=== PATIENT | male | born 1930 | race Caucasian/White ===

== ENCOUNTER → 2016-05-30 | Outpatient (CLI) | payer MEDICARE, BC ==
[2016-05-30 11:30] LABS: CH 27.4; CHCM 32.2; HCT 44.4 % (39.0-53.0); HDW 2.83; HGB 14.3 gm/dL (13.0-17.5); MCH 27.4 pg (25.0-35.0); MCHC 32.1 g/dL (31.0-37.0); MCV 85.2 fL (80.0-100.0); Mean Platelet Volume 6.9; RBC 5.21 m/uL (4.30-5.90); RDW 14.4 % (11.5-15.5); WBC 6.8 k/uL (3.8-10.6)
[2016-05-30 11:52] LABS: INR 1.7 (<1.1); Partial Thromboplastin Time 28.8 sec (22.0-30.0); Prothrombin Time 16.3 sec (9.0-12.0)
[2016-05-30 12:13] LABS: Anion Gap 10 mmol/L; Blood Urea Nitrogen 15 mg/dL (9-20); Carbon Dioxide 26 mmol/L (22-30); Chloride 107 mmol/L (98-107); Non-African American GFR(MDRD) >60 (>60 ml/min/1.73 sqM); Potassium 4.1 mmol/L (3.5-5.1); Sodium 143 mmol/L (137-145)
== END | disposition home or self-care (01) ==
LOC: LABPAT 10:37
PROVIDERS: ATTEND Internal Medicine Interventional Cardiology
DX: Z01.812 Encounter for preprocedural laboratory examination (principal); I49.5 Sick sinus syndrome; I48.91 Unspecified atrial fibrillation; Z51.81 Encounter for therapeutic drug level monitoring; Z79.01 Long term (current) use of anticoagulants
CPT/HCPCS: 80051; 82565; 84520; 85027; 85610; 85730

== ENCOUNTER → 2017-01-16 | Outpatient (CLI) | payer MEDICARE, BC ==
[2017-01-16 12:35] LABS: INR 3.5 (<1.2); Prothrombin Time 33.8 sec (9.0-12.0)
== END | disposition home or self-care (01) ==
LOC: LABWHC1 12:06
PROVIDERS: ATTEND Internal Medicine Interventional Cardiology
DX: I48.1 Persistent atrial fibrillation (principal)
CPT/HCPCS: 36415; 85610

== ENCOUNTER 2017-03-18 19:48 | Inpatient (IN) | payer MEDICARE, BC ==
--- NOTE | 2017-03-18 20:16 | ED ---
Lower Extremity Injury HPI - General Chief Complaint: Extremity Injury, Lower Stated Complaint: Fall Time Seen by Provider: 03/18/17 19:48 Source: patient, family, EMS, RN notes reviewed Mode of arrival: EMS Limitations: altered mental status - History of Present Illness Initial Comments: This is a 86-year-old male with a history dementia who is on blood thinners who apparently fell about a week ago while cutting grass he did twist his right knee. He finished cutting the lawn. He has had some swelling to the knee but today developed a lot of pain and increased swelling but no other findings. No abnormal behavior no complaints of pain anywhere than his right knee. He was brought in by EMS for evaluation. MD Complaint: knee injury - Related Data Home Medications Medication Instructions Recorded Confirmed Aspirin [Adult Low Dose Aspirin EC] 81 mg PO HS 03/18/17 03/18/17 Cholecalciferol [Vitamin D3] 2,000 unit PO DAILY 03/18/17 03/18/17 Donepezil [Aricept] 10 mg PO HS 03/18/17 03/18/17 Enalapril [Vasotec] 10 mg PO BID 03/18/17 03/18/17 Memantine [Namenda] 10 mg PO BID 03/18/17 03/18/17 Metoprolol Tartrate 25 mg PO BID 03/18/17 03/18/17 Omeprazole [PriLOSEC] 10 mg PO BID 03/18/17 03/18/17 Warfarin [Coumadin] 2.5 mg PO SUWESA 03/18/17 03/18/17 Warfarin [Coumadin] 5 mg PO MOTUTHFR 03/18/17 03/18/17 amLODIPine BESYLATE [Norvasc] 5 mg PO HS 03/18/17 03/18/17 Allergies Allergy/AdvReac Type Severity Reaction Status Date / Time codeine AdvReac Hallucinati Verified 03/18/17 20:38 ons Review of Systems ROS Statement: Those systems with pertinent positive or pertinent negative responses have been documented in the HPI. ROS Other: All systems not noted in ROS Statement are negative. Past Medical History Past Medical History: Hypertension History of Any Multi-Drug Resistant Organisms: None Reported Past Surgical History: Heart Catheterization, Pacemaker Additional Past Surgical History / Comment(s): valve replacement Past Psychological History: No Psychological Hx Reported Smoking Status: Former smoker Past Alcohol Use History: None Reported Past Drug Use History: None Reported General Exam - General Exam Comments Initial Comments: This is a well-developed well-nourished awake alert oriented male he demonstrated Nikko Coma Scale of 15 Limitations: altered mental status General appearance: alert, in no apparent distress Head exam: Present: atraumatic, normocephalic, normal inspection Eye exam: Present: normal appearance, PERRL, EOMI. Absent: scleral icterus, conjunctival injection, periorbital swelling ENT exam: Present: normal exam, mucous membranes moist Neck exam: Present: normal inspection. Absent: tenderness, meningismus, lymphadenopathy Respiratory exam: Present: normal lung sounds bilaterally. Absent: respiratory distress, wheezes, rales, rhonchi, stridor Cardiovascular Exam: Present: normal rhythm, bradycardia, normal heart sounds. Absent: systolic murmur, diastolic murmur, rubs, gallop, clicks GI/Abdominal exam: Present: soft, normal bowel sounds. Absent: distended, tenderness, guarding, rebound, rigid Rectal exam: Present: deferred Extremities exam: Present: full ROM, normal capillary refill, other (Tenderness palpation over the right hip no shortening or rotation the right knee demonstrates an effusion with some tenderness palpation bilaterally to medial and lateral aspects no patellar ballottement no step-off or crepitation no gross deformity.). Absent: tenderness, pedal edema, joint swelling, calf tenderness Back exam: Present: normal inspection Neurological exam: Present: alert, oriented X3, CN II-XII intact Psychiatric exam: Present: normal affect, normal mood Skin exam: Present: warm, dry, intact, normal color. Absent: rash Course Vital Signs 03/18/17 19:50 Temperature 98.7 F Pulse Rate 50 L Respiratory 19 Rate Blood Pressure 143/111 O2 Sat by Pulse 99 Oximetry Medical Decision Making - Medical Decision Making I did discuss findings with patient family members were present patient is unable weight-bear. Patient will be admitted for IV fluids also orthopedic consultation. - Lab Data Result diagrams: 03/18/17 20:05 03/18/17 20:05 Lab Results 03/18/17 03/18/17 03/18/17 Range/Units 20:05 20:05 20:05 WBC 9.1 (3.8-10.6) k/uL RBC 4.89 (4.30-5.90) m/uL Hgb 13.5 (13.0-17.5) gm/dL Hct 40.5 (39.0-53.0) % MCV 82.8 (80.0-100.0) fL MCH 27.7 (25.0-35.0) pg MCHC 33.5 (31.0-37.0) g/dL RDW 14.5 (11.5-15.5) % Plt Count 236 (150-450) k/uL Neutrophils % 75 % Lymphocytes % 15 % Monocytes % 7 % Eosinophils % 2 % Basophils % 1 % Neutrophils # 6.8 (1.3-7.7) k/uL Lymphocytes # 1.4 (1.0-4.8) k/uL Monocytes # 0.6 (0-1.0) k/uL Eosinophils # 0.1 (0-0.7) k/uL Basophils # 0.0 (0-0.2) k/uL PT 22.9 H (9.0-12.0) sec INR 2.4 H (<1.2) APTT 32.3 H (22.0-30.0) sec Sodium 138 (137-145) mmol/L Potassium 3.9 (3.5-5.1) mmol/L Chloride 107 (98-107) mmol/L Carbon Dioxide 21 L (22-30) mmol/L Anion Gap 10 mmol/L BUN 16 (9-20) mg/dL Creatinine 1.00 (0.66-1.25) mg/dL Est GFR (MDRD) Af Amer >60 (>60 ml/min/1.73 sqM) Est GFR (MDRD) Non-Af >60 (>60 ml/min/1.73 sqM) Glucose 97 (74-99) mg/dL Calcium 8.8 (8.4-10.2) mg/dL Magnesium 2.2 (1.6-2.3) mg/dL Total Bilirubin 0.5 (0.2-1.3) mg/dL AST 20 (17-59) U/L ALT 34 (21-72) U/L Alkaline Phosphatase 87 (38-126) U/L Total Protein 6.3 (6.3-8.2) g/dL Albumin 3.6 (3.5-5.0) g/dL - EKG Data -: EKG Interpreted by Me (Ventricular paced rhythm of 50 QRS 160 QT since QTC of 514/[address]-) - Radiology Data Radiology results: report reviewed (I did review the imaging and reports no acute findings.), image reviewed Disposition Clinical Impression: Effusion, right knee, Intractable neuropathic pain of right knee, Failure to thrive Disposition: ADMITTED IP TO THIS [facility] Condition: Stable Referrals: Josh Rizvi MD [Primary Care Provider] - 1-2 days
[2017-03-18 20:21] LABS: Basophils % (A) 1 %; CH 28.2; CHCM 34.2; Eosinophils # (A) 0.1 k/uL (0-0.7); Eosinophils % (A) 2 %; HCT 40.5 % (39.0-53.0); HDW 3.11; HGB 13.5 gm/dL (13.0-17.5); Luc # (Auto) 0.15; Luc % (Auto) 2; Lymphocytes # (A) 1.4 k/uL (1.0-4.8); Lymphocytes % (A) 15 %; MCH 27.7 pg (25.0-35.0); MCHC 33.5 g/dL (31.0-37.0); MCV 82.8 fL (80.0-100.0); Mean Platelet Volume 7.3; Monocytes # (A) 0.6 k/uL (0-1.0); Monocytes % (A) 7 %; Neutrophils # (A) 6.8 k/uL (1.3-7.7); Neutrophils % (A) 75 %; RBC 4.89 m/uL (4.30-5.90); RDW 14.5 % (11.5-15.5); WBC 9.1 k/uL (3.8-10.6); WBC (Perox) 9.11
[2017-03-18 20:29] LABS: INR 2.4 (<1.2); Partial Thromboplastin Time 32.3 sec (22.0-30.0); Prothrombin Time 22.9 sec (9.0-12.0)
[2017-03-18 20:35] LABS: ALT 34 U/L (21-72); AST 20 U/L (17-59); Alkaline Phosphatase 87 U/L (38-126); Anion Gap 10 mmol/L; Blood Urea Nitrogen 16 mg/dL (9-20); Calcium 8.8 mg/dL (8.4-10.2); Carbon Dioxide 21 mmol/L (22-30); Chloride 107 mmol/L (98-107); Glucose 97 mg/dL (74-99); Magnesium 2.2 mg/dL (1.6-2.3); Non-African American GFR(MDRD) >60 (>60 ml/min/1.73 sqM); Potassium 3.9 mmol/L (3.5-5.1); Sodium 138 mmol/L (137-145); Total Bilirubin 0.5 mg/dL (0.2-1.3); Total Protein 6.3 g/dL (6.3-8.2)
--- NOTE | 2017-03-18 21:03 | XR ---
EXAMINATION TYPE: XR pelvis AP view , ONE VIEW DATE OF EXAM ORDERED: 03/18/2017 HISTORY: Pain. COMPARISON: None. FINDINGS: Osseous structures about the pelvis are normal. No fracture is seen. There are phleboliths in the pelvis. IMPRESSION: NO ACUTE OSSEOUS LESION.
--- NOTE | 2017-03-18 21:04 | XR ---
EXAMINATION TYPE: XR chest 2V DATE OF EXAM: 03/18/2017 HISTORY: cough. REFERENCE: Previous study dated 03/03/2010. FINDINGS: There has been a previous midline sternotomy. There is a bipolar pacemaker in place on the left. The lungs are overinflated. The heart is enlarged. The lungs appear clear. Pleural spaces are clear. IMPRESSION: 1. COPD 2. CARDIOMEGALY.
--- NOTE | 2017-03-18 21:05 | XR ---
EXAMINATION TYPE: XR knee complete RT , 3 VIEWS DATE OF EXAM ORDERED: 03/18/2017 HISTORY: Pain. COMPARISON: None. FINDINGS: There is medial joint space loss. No fracture or dislocation is seen. There is a prominent knee joint effusion. IMPRESSION: 1. NO ACUTE OSSEOUS LESION. 2. LARGE JOINT EFFUSION. 3. FINDINGS CONSISTENT WITH OSTEOARTHRITIS.
[2017-03-18] MEDS ORDERED: ACETAMINOPHEN TAB 325 MG TAB PO PRN (21:46)
[2017-03-18] MEDS ORDERED: NALOXONE 0.4 MG/ML 1 ML VIAL IV PRN (21:46)
[2017-03-18] MEDS ORDERED: WARFARIN 5 MG TAB PO SCH (22:00)
[2017-03-18] MEDS: SODIUM CHLORIDE 0.9% 1,000 ML IV SCH (22:33)
[2017-03-18] MEDS: ACETAMINOPHEN TAB 325 MG TAB PO STA ×2 (22:34→22:50)
[2017-03-19] MEDS ORDERED: LORazepam 2 MG/ML INJ IV STA (00:13)
[2017-03-19] MEDS ORDERED: HALOPERIDOL LACTATE 5 MG/ML 1 ML VIAL IVP PRN (10:38)
[2017-03-19] MEDS: CHOLECALCIFEROL 1,000 UNIT TAB PO SCH (11:23)
[2017-03-19] MEDS: METOPROLOL TARTRATE 25 MG TAB PO SCH ×2 (11:23→22:22)
[2017-03-19] MEDS: MEMANTINE 10 MG TAB PO SCH ×2 (11:23→22:22)
[2017-03-19] MEDS: LISINOPRIL 20 MG TAB PO SCH ×2 (11:24→22:22)
[2017-03-19] MEDS: PANTOPRAZOLE 40 MG TABLET PO SCH ×2 (11:25→22:09)
--- NOTE | 2017-03-19 12:23 | P.CNOR ---
History of Present Illness - [facility] Consult date: 03/19/17 Consult reason: joint pain History of present illness: This is an 86-year-old male who is seen and evaluated Danii Winchester on the ER last night with regards to right knee pain and swelling. Patient is accompanied with his today at bedside. She states that about a week ago, he got his tractor Rajesh cutting the grass, and went to step off the more and had a twisting type injury. He had noted immediate pain at that time of the injury. She states over the last few day he is complaining more about increase in pain. Yesterday, he noted it was so severe was unable to weight- bear. Patient is a history of dementia, achieving a review of systems is in HPI was difficult. His is present to help with this. Patient states that he had seen Dr. Duarte along time ago and had some surgery on his left leg. No recent surgery involving the right lower extremity. Patient's states that he is a pretty active person, he ambulates on his own. At bedside today, patient is slightly agitated is hard to review her review of systems. He does have discomfort around the right knee when I taken through range of motion. Review of Systems Constitutional: Reports as per [facility] Past Medical History Past Medical History: Hypertension Additional Past Medical History / Comment(s): Dementia History of Any Multi-Drug Resistant Organisms: None Reported Past Surgical History: Heart Catheterization, Pacemaker Additional Past Surgical History / Comment(s): valve replacement, rods and pins in left leg, cataract surgery Past Anesthesia/Blood Transfusion Reactions: No Reported Reaction Type of Cardiac Device: Permanent Pacemaker Device Placement Date:: Jun 2016 Past Psychological History: No Psychological Hx Reported Smoking Status: Former smoker Past Alcohol Use History: None Reported Past Drug Use History: None Reported - Past Family History Father History Unknown: Yes Mother Family Medical History: Cancer, Diabetes Mellitus Additional Family Medical History / Comment(s): Breast cancer in her 80's, borderline diabetic Medications and Allergies Home Medications Medication Instructions Recorded Confirmed Type Aspirin [Adult Low Dose Aspirin EC] 81 mg PO HS 03/18/17 03/18/17 History Cholecalciferol [Vitamin D3] 2,000 unit PO DAILY 03/18/17 03/18/17 History Donepezil [Aricept] 10 mg PO HS 03/18/17 03/18/17 History Enalapril [Vasotec] 10 mg PO BID 03/18/17 03/18/17 History Memantine [Namenda] 10 mg PO BID 03/18/17 03/18/17 History Metoprolol Tartrate 25 mg PO BID 03/18/17 03/18/17 History Omeprazole [PriLOSEC] 10 mg PO BID 03/18/17 03/18/17 History Warfarin [Coumadin] 2.5 mg PO SUWESA 03/18/17 03/18/17 History Warfarin [Coumadin] 5 mg PO MOTUTHFR 03/18/17 03/18/17 History amLODIPine BESYLATE [Norvasc] 5 mg PO HS 03/18/17 03/18/17 History Allergies Allergy/AdvReac Type Severity Reaction Status Date / Time codeine AdvReac Hallucinati Verified 03/18/17 20:38 ons Physical Examination Right lower extremity: No obvious open lesions or sores present on the skin. Is no obvious effusion present over the knee, no areas of erythema. He is able to fully extend the knee, flexion past about 50-60 reproduces pain. Tender with palpation throughout the suprapatellar pouch. He's nontender along the medial and lateral joint lines. He's nontender in the proximal femur. He is nontender distal to the knee. Logroll maneuver reproduces groin pain. Plantar flexion, dorsiflexion, EHL, FHL are intact. Calf is soft, no tenderness with palpation. His dorsal pedis pulses 2+. Results - Labs Labs: Abnormal Lab Results - Last 24 Hours (Table) 03/18/17 03/18/17 Range/Units 20:05 20:05 PT 22.9 H (9.0-12.0) sec INR 2.4 H (<1.2) APTT 32.3 H (22.0-30.0) sec Carbon Dioxide 21 L (22-30) mmol/L H & H 03/18/17 Range/Units 20:05 Hgb 13.5 (13.0-17.5) gm/dL Hct 40.5 (39.0-53.0) % Coagulation 03/18/17 Range/Units 20:05 INR 2.4 H (<1.2) Result Diagrams: 03/18/17 20:05 03/18/17 20:05 - Diagnostic results Hip x-ray: report reviewed, image reviewed Knee x-ray: report reviewed, image reviewed Assessment and Plan Plan: Imaging: AP pelvis was taken, images demonstrated no acute fractures or dislocations. AP and lateral views were also taken of the right knee, obvious effusion is visualized. No other acute osseous abnormalities. Assessment: 1. Right knee hemarthrosis 2. Other medical comorbidities Plan: 1. I was able to discuss the case, including the physical exam findings and imaging studies with Dr. Carrillo. We would like proceed with an aspiration of the right knee along with an intra-articular cortisone injection symptomatically. I did discuss this with the patient and his , they would like to proceed. Please see procedure note for further detail. 2. Weight-bear as tolerated, utilize walker 3. Ice and elevate 4. GI and DVT prophylaxis per medical recommendations 5. Medical recommendations 6. Discharge planning: Patient is stable via orthopedics standpoint, no surgical intervention needed. Patient may follow-up as needed. Discussed with the possibility of home care to help with daily activities. Procedure note: Patient was placed in the supine position, the knee was prepped with 1 ChloraPrep swab and one alcohol swabs. I utilized a 20 mL needle, and injected 3 mL of 1% plain lidocaine intra-articularly. The suprapatellar approach. After anesthetizing I then aspirated about 45 mL of blood from the right knee. After finishing this, then switched syringes and placed 1 mL of plain lidocaine , 1 mL of quarter percent Marcaine, 40 mg Marcaine into the right knee. Patient tolerated the procedure well. Time with Patient: Less than 30
[2017-03-19] MEDS ORDERED: guaiFENesin SYRUP 100MG/5ML 200 MG/10 ML CUP PO PRN (12:51)
[2017-03-19 14:53] VITALS: RESP 16
--- NOTE | 2017-03-19 16:23 | P.HPIM ---
History of Present Illness Her old gentleman with history of dementia denied any fall but started having pain all of a sudden the right knee found found to have hemarthrosis for which patient underwent evacuation patient also severe osteoarthritis for which patient underwent knee injection patient does have dementia which appears to be advanced alert and oriented 1 the concern is patient is requiring assistance because of which will obtain PT and OT consultation patient was cleared from operative perspective but patient may end up needing to residential or subacute rehabitation as patient's will not be able to take care of him at home. Patient although denied any fever, chills, nausea, vomiting patient is on Coumadin with INR of 2.2 which is therapeutic. Not sure why patient is on Coumadin will have to verified with the patient a can when I evaluated him tomorrow no documentation is available in this hospital system Review of Systems Patient denied any other symptoms although not a very reliable historian unable to much get much of the review of systems from the patient. Most of the history is obtain from the family members. Past Medical History Past Medical History: Hypertension Additional Past Medical History / Comment(s): Dementia History of Any Multi-Drug Resistant Organisms: None Reported Past Surgical History: Heart Catheterization, Pacemaker Additional Past Surgical History / Comment(s): valve replacement, rods and pins in left leg, cataract surgery Past Anesthesia/Blood Transfusion Reactions: No Reported Reaction Type of Cardiac Device: Permanent Pacemaker Device Placement Date:: Jun 2016 Past Psychological History: No Psychological Hx Reported Smoking Status: Former smoker Past Alcohol Use History: None Reported Past Drug Use History: None Reported - Past Family History Father History Unknown: Yes Mother Family Medical History: Cancer, Diabetes Mellitus Additional Family Medical History / Comment(s): Breast cancer in her 80's, borderline diabetic Medications and Allergies Home Medications Medication Instructions Recorded Confirmed Type Aspirin [Adult Low Dose Aspirin EC] 81 mg PO HS 03/18/17 03/18/17 History Cholecalciferol [Vitamin D3] 2,000 unit PO DAILY 03/18/17 03/18/17 History Donepezil [Aricept] 10 mg PO HS 03/18/17 03/18/17 History Enalapril [Vasotec] 10 mg PO BID 03/18/17 03/18/17 History Memantine [Namenda] 10 mg PO BID 03/18/17 03/18/17 History Metoprolol Tartrate 25 mg PO BID 03/18/17 03/18/17 History Omeprazole [PriLOSEC] 10 mg PO BID 03/18/17 03/18/17 History Warfarin [Coumadin] 2.5 mg PO SUWESA 03/18/17 03/18/17 History Warfarin [Coumadin] 5 mg PO MOTUTHFR 03/18/17 03/18/17 History amLODIPine BESYLATE [Norvasc] 5 mg PO HS 03/18/17 03/18/17 History Allergies Allergy/AdvReac Type Severity Reaction Status Date / Time codeine AdvReac Hallucinati Verified 03/18/17 20:38 ons Physical Exam Vitals: Vital Signs Temp Pulse Pulse Pulse Resp BP BP 03/19/17 14:53 98.6 F 50 L 16 134/72 03/19/17 07:22 188/74 03/19/17 07:09 97.9 F 50 L 19 03/18/17 23:38 50 L 16 148/70 03/18/17 22:11 97.4 F L 58 L 18 123/81 03/18/17 19:50 98.7 F 50 L 19 143/111 Pulse Ox 03/19/17 14:53 98 03/19/17 07:22 03/19/17 07:09 98 03/18/17 23:38 97 03/18/17 22:11 97 03/18/17 19:50 99 Intake and Output 03/19/17 03/19/17 03/19/17 06:59 14:59 22:59 Intake Total 150 Balance 150 Intake: Oral 150 Other: # Voids 1 PHYSICAL EXAMINATION: GENERAL: The patient is alert and oriented x1, not in any acute distress. Well developed, well nourished. HEENT: Pupils are round and equally reacting to light. EOMI. No scleral icterus. No conjunctival pallor. Normocephalic, atraumatic. No pharyngeal erythema. No thyromegaly. CARDIOVASCULAR: S1 and S2 present. No murmurs, rubs, or gallops. PULMONARY: Chest is clear to auscultation, no wheezing or crackles. ABDOMEN: Soft, nontender, nondistended, normoactive bowel sounds. No palpable organomegaly. MUSCULOSKELETAL: Right knee is swollen nontender patient is able to mow the right knee passive and active more movements are not restricted and the patient has another subcutaneous swelling secondary to the steroid injection most probably EXTREMITIES: No cyanosis, clubbing, or pedal edema. NEUROLOGICAL: Gross neurological examination did not reveal any focal deficits. SKIN: No rashes. Results CBC & Chem 7: 03/18/17 20:05 03/18/17 20:05 Labs: Abnormal Lab Results - Last 24 Hours (Table) 03/18/17 03/18/17 Range/Units 20:05 20:05 PT 22.9 H (9.0-12.0) sec INR 2.4 H (<1.2) APTT 32.3 H (22.0-30.0) sec Carbon Dioxide 21 L (22-30) mmol/L Thrombosis Risk Factor Assmnt - Choose All That Apply Each Risk Factor Represents 3 Points: Age 75 years or older Thrombosis Risk Factor Assessment Total Risk Factor Score: 3 Thrombosis Risk Factor Assessment Level: Moderate Risk Assessment and Plan Plan: 1 hemarthrosis and severe osteoarthritis of the right knee: Patient is status post evacuation of the blood clots in the right knee patient has a spontaneous bleed secondary to aspirin and Coumadin and severe osteoarthritis of the right knee patient had steroidal injection PT and OT will evaluate the patient and possibility of placement to subacute rehabitation. #2 patient appears to have history of valvular disease and possibility of atrial fibrillation although I have to confirm this diagnosis of the family members and patient is an anti-correlation with Coumadin therapeutic and repeat INR tomorrow. #3 coronary artery disease with [employer] history of CABG in the past #4 dementia either vascular or senile dementia #5 hypertension: Continue with the amlodipine and ALVIN inhibitor.
[2017-03-19] MEDS ORDERED: HALOPERIDOL 2 MG TAB PO STA (17:19)
[2017-03-19] MEDS ORDERED: HALOPERIDOL 2 MG TAB PO PRN (19:22)
[2017-03-19] MEDS ORDERED: ASPIRIN 81 MG PO SCH (21:00)
[2017-03-19] MEDS ORDERED: DONEPEZIL 10 MG TAB PO SCH (21:00)
[2017-03-19] MEDS ORDERED: amLODIPine 5 MG TAB PO SCH (21:00)
[2017-03-19] MEDS ORDERED: QUEtiapine 25 MG TAB PO SCH (21:00)
[2017-03-19] MEDS: SODIUM CHLORIDE 0.9% 1,000 ML IV SCH (22:09)
[2017-03-20] MEDS: SODIUM CHLORIDE 0.9% 1,000 ML IV SCH ×2 (01:27→12:34)
[2017-03-20 07:26] LABS: INR 2.1 (<1.2); Prothrombin Time 20.5 sec (9.0-12.0)
[2017-03-20 07:32] LABS: CH 27.8; CHCM 32.6; HCT 43.5 % (39.0-53.0); HDW 2.77; HGB 14.1 gm/dL (13.0-17.5); MCH 27.7 pg (25.0-35.0); MCHC 32.4 g/dL (31.0-37.0); MCV 85.6 fL (80.0-100.0); Mean Platelet Volume 8.2; RBC 5.08 m/uL (4.30-5.90); WBC 13.6 k/uL (3.8-10.6)
[2017-03-20 07:43] LABS: Anion Gap 10 mmol/L; Blood Urea Nitrogen 15 mg/dL (9-20); Carbon Dioxide 23 mmol/L (22-30); Chloride 106 mmol/L (98-107); Glucose 128 mg/dL (74-99); Non-African American GFR(MDRD) >60 (>60 ml/min/1.73 sqM); Potassium 3.8 mmol/L (3.5-5.1); Sodium 139 mmol/L (137-145)
[2017-03-20 09:03] VITALS: BP 144/64; PULSE 50; TEMP 97.7
[2017-03-20] MEDS: PANTOPRAZOLE 40 MG TABLET PO SCH (09:38)
[2017-03-20] MEDS: CHOLECALCIFEROL 1,000 UNIT TAB PO SCH (09:38)
[2017-03-20] MEDS: METOPROLOL TARTRATE 25 MG TAB PO SCH (09:39)
[2017-03-20] MEDS: LISINOPRIL 20 MG TAB PO SCH (09:39)
[2017-03-20] MEDS: MEMANTINE 10 MG TAB PO SCH (09:39)
--- NOTE | 2017-03-20 12:48 | P.DS ---
Providers Date of admission: 03/18/17 21:46 Attending physician: Josh Rizvi Consults: 03/18/17 21:47 Consult Physician Routine Consulting Provider: Jeff Duarte Consult Reason/Comments: Right knee effusion Do you want consulting provider notified?: Yes, Notify in am Primary care physician: Josh Rizvi Hospital Course: Patient was admitted for right knee hematoma secondary to severe osteoarthritis and being on Coumadin. Patient will be discharged today as family wanted to take him home as he will do better at home rather than rehab patient was having hospitalization related confusion which is expected to improve once he is discharged patient will be given empiric Seroquel for on as-needed basis for agitation at home PHYSICAL EXAMINATION: GENERAL: The patient is alert and oriented x1, not in any acute distress. Well developed, well nourished. HEENT: Pupils are round and equally reacting to light. EOMI. No scleral icterus. No conjunctival pallor. Normocephalic, atraumatic. No pharyngeal erythema. No thyromegaly. CARDIOVASCULAR: S1 and S2 present. No murmurs, rubs, or gallops. PULMONARY: Chest is clear to auscultation, no wheezing or crackles. ABDOMEN: Soft, nontender, nondistended, normoactive bowel sounds. No palpable organomegaly. MUSCULOSKELETAL: Right knee is swollen nontender patient is able to mow the right knee passive and active more movements are not restricted and the patient has another subcutaneous swelling secondary to the steroid injection most probably EXTREMITIES: No cyanosis, clubbing, or pedal edema. NEUROLOGICAL: Gross neurological examination did not reveal any focal deficits. SKIN: No rashes. 1 hemarthrosis and severe osteoarthritis of the right knee: Patient is status post evacuation of the blood clots in the right knee patient has a spontaneous bleed secondary to aspirin and Coumadin and severe osteoarthritis of the right knee patient had steroidal injection PT and OT will evaluate the patient and possibility of placement to subacute rehabitation. #2 history of atrial fibrillation and valvular A. 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 Patient Condition at Discharge: Stable Plan - Discharge Summary Discharge Rx Participant: Yes New Discharge Prescriptions: New QUEtiapine [SEROquel] 25 mg PO HS #30 tab Discontinued amLODIPine BESYLATE [Norvasc] 5 mg PO HS Aspirin [Adult Low Dose Aspirin EC] 81 mg PO HS No Action Warfarin [Coumadin] 5 mg PO MOTUTHFR Warfarin [Coumadin] 2.5 mg PO SUWESA Donepezil [Aricept] 10 mg PO HS Cholecalciferol [Vitamin D3] 2,000 unit PO DAILY Omeprazole [PriLOSEC] 10 mg PO BID Metoprolol Tartrate 25 mg PO BID Memantine [Namenda] 10 mg PO BID Enalapril [Vasotec] 10 mg PO BID Discharge Medication List Cholecalciferol [Vitamin D3] 2,000 unit PO DAILY 03/18/17 [History] Donepezil [Aricept] 10 mg PO HS 03/18/17 [History] Enalapril [Vasotec] 10 mg PO BID 03/18/17 [History] Memantine [Namenda] 10 mg PO BID 03/18/17 [History] Metoprolol Tartrate 25 mg PO BID 03/18/17 [History] Omeprazole [PriLOSEC] 10 mg PO BID 03/18/17 [History] Warfarin [Coumadin] 2.5 mg PO SUWESA 03/18/17 [History] Warfarin [Coumadin] 5 mg PO MOTUTHFR 03/18/17 [History] QUEtiapine [SEROquel] 25 mg PO HS #30 tab 03/20/17 [Rx] Follow up Appointment(s)/Referral(s): Josh Rizvi MD [Primary Care Provider] - 1-2 days David Carrillo DO [Doctor of Osteopathic Medicine] - 2 Weeks [facility] [place], [NON-STAFF] - As Needed Discharge Disposition: HOME WITH HOME HEALTH SERVICES
[2017-03-20] MEDS ORDERED: WARFARIN 2.5 MG TAB PO SCH (22:00)
== END 2017-03-20 13:28 | disposition home health service (06) | DRG 554 ==
LOC: EC 19:48 → 3SUR 21:46
PROVIDERS: ADMIT Family Medicine; ATTEND Family Medicine
PROC: 0S9C3ZZ Drainage of Right Knee Joint, Percutaneous Approach (ICD-10-PCS; principal; 2017-03-19)
DX: M25.061 Hemarthrosis, right knee (principal); F03.90 Unspecified dementia, unspecified severity, without behavioral disturbance, psychotic disturbance, mood disturbance, and anxiety; Z95.1 Presence of aortocoronary bypass graft; I10 Essential (primary) hypertension; M17.11 Unilateral primary osteoarthritis, right knee; I25.10 Atherosclerotic heart disease of native coronary artery without angina pectoris; R62.7 Adult failure to thrive; T39.015A Adverse effect of aspirin, initial encounter; T45.515A Adverse effect of anticoagulants, initial encounter; M25.461 Effusion, right knee; T38.0X5A Adverse effect of glucocorticoids and synthetic analogues, initial encounter; F01.50 Vascular dementia, unspecified severity, without behavioral disturbance, psychotic disturbance, mood disturbance, and anxiety; Z79.01 Long term (current) use of anticoagulants; Z79.82 Long term (current) use of aspirin; Z79.899 Other long term (current) drug therapy; Z87.891 Personal history of nicotine dependence; Z95.2 Presence of prosthetic heart valve; Z88.5 Allergy status to narcotic agent; Z95.0 Presence of cardiac pacemaker; W18.30XA Fall on same level, unspecified, initial encounter; Y92.007 Garden or yard of unspecified non-institutional (private) residence as the place of occurrence of the external cause; Y92.239 Unspecified place in hospital as the place of occurrence of the external cause; Y92.009 Unspecified place in unspecified non-institutional (private) residence as the place of occurrence of the external cause
CPT/HCPCS: 36415; 71020; 72170; 80048; 80053; 83735; 85025; 85027; 85610; 85730; 93005; 99285

== ENCOUNTER → 2017-09-25 | Outpatient (CLI) | payer MEDICARE, BC ==
[2017-09-25 10:52] LABS: Basophils % (A) 1 %; Eosinophils # (A) 0.2 k/uL (0-0.7); Eosinophils % (A) 4 %; HGB 14.8 gm/dL (13.0-17.5); Lymphocytes # (A) 1.1 k/uL (1.0-4.8); Lymphocytes % (A) 18 %; MCH 28.4 pg (25.0-35.0); MCHC 33.7 g/dL (31.0-37.0); MCV 84.4 fL (80.0-100.0); Mean Platelet Volume 7.4; Monocytes # (A) 0.4 k/uL (0-1.0); Monocytes % (A) 7 %; Neutrophils # (A) 4.1 k/uL (1.3-7.7); Neutrophils % (A) 69 %; Platelet Count 180 k/uL (150-450); RBC 5.21 m/uL (4.30-5.90); RDW 14.8 % (11.5-15.5)
[2017-09-25 11:18] LABS: Albumin 3.9 g/dL (3.5-5.0); Calcium 8.7 mg/dL (8.4-10.2); Potassium 4.2 mmol/L (3.5-5.1); Total Bilirubin 0.7 mg/dL (0.2-1.3); Total Protein 6.5 g/dL (6.3-8.2)
[2017-09-25 11:31] LABS: T4, Free (Free Thyroxine) 1.02 ng/dL (0.78-2.19)
== END | disposition home or self-care (01) ==
LOC: LABWHC1 10:22
PROVIDERS: ATTEND Family Medicine
DX: E78.5 Hyperlipidemia, unspecified (principal); E55.9 Vitamin D deficiency, unspecified; R53.81 Other malaise; Z13.220 Encounter for screening for lipoid disorders
CPT/HCPCS: 36415; 80053; 80061; 82306; 84439; 84443; 85025

== ENCOUNTER 2017-10-07 21:19 | Emergency (ER) | payer MEDICARE, BC ==
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
[2017-10-07] MEDS ORDERED: HALOPERIDOL LACTATE 5 MG/ML 1 ML VIAL IM STA (21:38)
[2017-10-07 21:41] VITALS: BP 163/80; PULSE 66; RESP 20; TEMP 96.7
[2017-10-07 21:54] LABS: Basophils % (A) 1 %; Eosinophils # (A) 0.1 k/uL (0-0.7); Eosinophils % (A) 1 %; HCT 45.2 % (39.0-53.0); Lymphocytes # (A) 0.9 k/uL (1.0-4.8); Lymphocytes % (A) 10 %; MCH 27.9 pg (25.0-35.0); MCHC 33.3 g/dL (31.0-37.0); MCV 83.7 fL (80.0-100.0); Mean Platelet Volume 7.5; Monocytes # (A) 0.6 k/uL (0-1.0); Monocytes % (A) 7 %; Neutrophils # (A) 7.2 k/uL (1.3-7.7); Neutrophils % (A) 80 %; Platelet Count 182 k/uL (150-450); RDW 14.8 % (11.5-15.5); WBC 8.9 k/uL (3.8-10.6)
[2017-10-07 22:05] LABS: Calcium 9.3 mg/dL (8.4-10.2)
[2017-10-07 22:08] LABS: Potassium 4.9 mmol/L (3.5-5.1)
[2017-10-07] MEDS ORDERED: LORazepam 2 MG/ML INJ IV STA (22:25)
== END 2017-10-08 00:49 | disposition home or self-care (01) ==
LOC: EC 21:19
DX: F03.90 Unspecified dementia, unspecified severity, without behavioral disturbance, psychotic disturbance, mood disturbance, and anxiety (principal); R45.1 Restlessness and agitation; I10 Essential (primary) hypertension; Z95.0 Presence of cardiac pacemaker; Z95.2 Presence of prosthetic heart valve; Z87.891 Personal history of nicotine dependence; Z79.01 Long term (current) use of anticoagulants; Z79.899 Other long term (current) drug therapy; Z88.5 Allergy status to narcotic agent; Z91.018 Allergy to other foods; Z91.048 Other nonmedicinal substance allergy status
CPT/HCPCS: 36415; 80048; 85025; 99285; 96374; 96372; J2060; J1630

== ENCOUNTER 2017-10-08 11:12 | Emergency (ER) | payer MEDICARE, BC ==
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
[2017-10-08] MEDS: LORazepam 2 MG/ML INJ IV STA ×2 (11:54→15:18)
[2017-10-08 12:16] LABS: Appearance,Urine Clear (Clear); Bilirubin,Urine Negative (Negative); Blood,Urine Small (Negative); Color,Urine Yellow; Glucose,Urine (UA) Negative (Negative); Hyaline Casts,Urine 1 /lpf (0-2); Ketones,Urine 1+ (Negative); Leukocyte Esterase,Urine Negative (Negative); Mucus,Urine Rare /hpf; Nitrite,Urine Negative (Negative); PH, Urine 5.5 (5.0-8.0); Protein,Urine Trace (Negative); RBC,Urine 7 /hpf (0-5); Specific Gravity,Urine 1.022 (1.001-1.035); WBC,Urine 1 /hpf (0-5)
[2017-10-08 12:17] LABS: Basophils % (A) 0 %; Eosinophils # (A) 0.1 k/uL (0-0.7); Eosinophils % (A) 1 %; HCT 44.1 % (39.0-53.0); HGB 15.1 gm/dL (13.0-17.5); Lymphocytes # (A) 0.8 k/uL (1.0-4.8); Lymphocytes % (A) 7 %; MCH 29.1 pg (25.0-35.0); MCHC 34.3 g/dL (31.0-37.0); MCV 84.7 fL (80.0-100.0); Mean Platelet Volume 7.1; Monocytes # (A) 0.8 k/uL (0-1.0); Monocytes % (A) 7 %; Neutrophils # (A) 8.8 k/uL (1.3-7.7); Neutrophils % (A) 83 %; Platelet Count 162 k/uL (150-450); RDW 15.4 % (11.5-15.5); WBC 10.6 k/uL (3.8-10.6)
[2017-10-08 12:28] LABS: Albumin 4.4 g/dL (3.5-5.0); Calcium 9.6 mg/dL (8.4-10.2); Potassium 4.4 mmol/L (3.5-5.1); Total Bilirubin 1.2 mg/dL (0.2-1.3); Total Protein 7.1 g/dL (6.3-8.2)
[2017-10-08 13:29] VITALS: BP 148/67; PULSE 67; RESP 15; TEMP 97.3
== END 2017-10-08 15:25 | disposition home or self-care (01) ==
LOC: EC 11:12
DX: F03.91 Unspecified dementia, unspecified severity, with behavioral disturbance (principal); R41.0 Disorientation, unspecified; I10 Essential (primary) hypertension; Z87.891 Personal history of nicotine dependence; Z79.01 Long term (current) use of anticoagulants; Z79.82 Long term (current) use of aspirin; Z79.899 Other long term (current) drug therapy; Z88.5 Allergy status to narcotic agent; Z91.018 Allergy to other foods; Z91.048 Other nonmedicinal substance allergy status
CPT/HCPCS: 36415; 80053; 84484; 85025; 81001; 99285; 96374; 96376; J2060